=== PATIENT | male | born 1975 | race Caucasian/White ===

== ENCOUNTER 2016-08-05 01:59 | Emergency (ER) | payer OTHER ==
[2016-08-05 02:05] VITALS: TEMP 97.6; BMI 33.4
[2016-08-05] MEDS ORDERED: NS 1,000 ML IV ONE (02:17)
[2016-08-05] MEDS ORDERED: PROMETHAZINE 25 MG/ML VIAL IV ONE (02:18)
[2016-08-05] MEDS ORDERED: DIAZEPAM 10 MG/2 ML TUBEX IV ONE (02:18)
--- NOTE | 2016-08-05 02:20 | EDPRACDOC ---
"- General Information Chief Complaint: Generalized Weakness Stated Complaint: NAUSEA/DIZZINESS Time Seen by Provider: 08/05/16 02:09 Mode Of Arrival: Car Home Medications: Home Medications Diazepam [Valium] 5 mg PO TID #30 tablet 08/05/16 Promethazine [Phenergan] 25 mg PO Q8H PRN #30 tab 08/05/16 Allergies/Adverse Reactions: Allergies Allergy/AdvReac Type Severity Reaction Status Date / Time latex Allergy Itching Verified 08/05/16 02:05 - History of Present Illness Onset: THIS AM Exact Onset of Symptoms: Unknown Date Symptoms Started: 08/05/16 HPI: PATIENT NOTED SOME DIZZINESS AND ROOM SPINNING WITH NAUSEA. WORSE WITH HEAD MOVEMENT. 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 Symptoms Started: Reports: Gradually Symptoms Description: Constant Symptoms: Reports: Imbalance, Tinnitus, Vertigo Symptom Severity: Reports: Unable to performs ADL's Associated signs and symptoms:: Reports: Nausea, Vomiting ED Past Medical History - History Reviewed Yes Nurses notes reviewed and agree except as marked Travel Outside of [place] in the Last 3 Months?: No - Social Medical History ETOH: None Substance Abuse: None Lives With: Family Lives In: Home EDM Review of Systems - Review of Systems ROS Negative Except as Marked: Yes All systems reviewed and were negative except as marked Constitutional: Fatigue. negative: Chills, Fever, Loss of Appetite, Weakness Eyes: No Symptoms Reported. negative: Redness, Blurred Vision, Double Vision, Discharge, Pain, Light Sensitive, Photophobia Ears: No Symptoms Reported. negative: Pain, Hearing Loss, Drainage, Ear Pulling Throat: No Symptoms Reported. negative: Pain, Swelling Nose: No Symptoms Reported. negative: Congestion, Bleeding, Discharge, Injection, Swelling, Deformity, Ecchymosis, Tender, Abrasion, Laceration Mouth: No Symptoms Reported. negative: Pain, Drooling Respiratory: No Symptoms Reported. negative: Cough, Brassy Cough, Barky Cough, Shortness of Breath, Wheezing, Hemoptysis Cardiovascular: No Symptoms Reported. negative: Chest Pain, Palpitations, Syncope, Edema, Orthopnea, PND, Skin Mottling, Cyanosis Gastrointestinal: Nausea, Vomiting. negative: Constipation, Diarrhea, Formula Intolerance, Melena, Pain Genitourinary: No Symptoms Reported. negative: Dysuria, Hematuria, Frequency, Discharge, Bleeding, Testicular Pain, Neurological: Dizziness. negative: Gait Difficulty, Headache, Numbness, Seizure , Speech Difficulty, Weakness Musculoskeletal: No Symptoms Reported. negative: Neck, Chestwall, Ribs, Back, Shoulder, Arm, Elbow, Forearm, Wrist, Hand, Pelvis, Hip, Femur, Knee, Leg, Ankle , Foot Integumentary: No Symptoms Reported. negative: Itching, Rash, Bruising, Wound Allergic/Immunologic: No Symptoms Reported. negative: Hives, Itching Hematologic: No Symptoms Reported. negative: Lymphadenopathy, Easy Bruising, Easy Bleeding Endocrine: No Symptoms Reported. negative: Weight Gain, Weight Loss Psychiatric: No Symptoms Reported. negative: Anxiety, Depression, Hallucinations, Insomnia, Suicidal - Physical Exam Constitutional: Alert (Awake), No apparent distress Oriented to: Time, Person, Place Last recorded Vital Signs: Last Vital Signs Temp 97.6 F 08/05/16 02:01 Pulse 82 08/05/16 02:01 Resp 20 08/05/16 02:01 BP 162/92 08/05/16 02:01 Pulse Ox 98 08/05/16 02:01 Oxygen Pulse Oxygen Saturation 98 O2 Device Room Air Oxygen Flow Rate Fraction of Inspired Oxygen ( FIO2) - HEENT Head: Normal ( normocephalic) Eye Exam: Normal (PERRL, EOMI, Sclera white) Oropharynx: Normal (Pharynx:Moist without exudate,Gums-no swelling) Tympanic Membrane: Normal ENT EAC: Normal TMJ: Normal Nose: No Symptoms Reported (septum midline) Neck: Normal (FROM, trachea at midline) - Respiratory/Cardiovascular Respiratory: Normal - CTA (BBS clear to auscultation without adventitious sounds ) Cardiovascular: Normal (RRR without murmur, gallop or rub) - GI Auscultation: Normal (NABS) Palpation: Normal (Soft,No rebound or guarding, non distended) Tenderness: Non tender Maurer's Sign: Negative - Musculoskeletal Back: Normal (Non-Tender) Extremities: Normal (Normal tone, Pulses 2+ No cyanosis or edema, FROM) - Integumentary Skin: Normal, Warm, Dry Lymphatics: Normal (no adenopathy) - Neurologic Memory Impaired: Normal Motor Function: Normal (Normal tone, Pulses 2+ No cyanosis or edema, FROM) Cranial Nerve: Normal (CN II-X11 intact sensation, strength 5/5) Cerebellar: Normal Mood Description: Normal Perception: Normal - Results 08/05/16 02:15 08/05/16 02:15 - EKG EKG #1 EKG Time: 02:56 -: Yes EKG interpreted by me Rate: bpm: 84 [place]: Normal Rhythm: NSR Block: None Hypertrophy: None ST: Normal Decision Time to Discharge: 03:05 - Departure Yes I personally saw and evaluated the patient. Disposition: Home Condition: Good Final Diagnosis: Nausea and vomiting, Vertigo Instructions: Vertigo (ED) Education/Counseling Given To: Patient Education/Counseling Given Regarding: Diagnosis, Treatment, Prognosis, Follow Up Referrals: Guzman Heaton MD [Primary Care Provider] - One Week Prescriptions: New Diazepam [Valium] 5 mg PO TID #30 tablet Promethazine [Phenergan] 25 mg PO Q8H PRN #30 tab PRN Reason: Nausea/Vomiting Additional Instructions: follow up with PT for vertigo. Briana Frey, PT | [employer], [facility] | [phone] F | [phone] [place] [id number] [email or web address]"
[2016-08-05 02:48] LABS: AUTOMATED BASOPHIL 0.3 % (0-2); AUTOMATED EOSINOPHIL 3.2 % (0-5); AUTOMATED LYMPH 36.4 % (17-44); AUTOMATED MONOCYTE 9.2 % (3-10); AUTOMATED NEUTROPHIL 50.9 % (45-76); MPV 8.3 fL (7.4-10.4)
[2016-08-05 02:54] LABS: PARTIAL THROMB. TIME 24.5 SEC (22-35)
--- NOTE | 2016-08-05 02:54 | DIRPT ---
CLINICAL DATA: Dizziness this morning, nausea. History of traumatic brain injury. EXAM: CT HEAD WITHOUT CONTRAST TECHNIQUE: Contiguous axial images were obtained from the base of the skull through the vertex without intravenous contrast. COMPARISON: None. FINDINGS: No intracranial hemorrhage, mass effect, or midline shift. No hydrocephalus. The basilar cisterns are patent. No evidence of territorial infarct. No intracranial fluid collection. Calvarium is intact. Included paranasal sinuses and mastoid air cells are well aerated. IMPRESSION: No acute intracranial abnormality. Electronically Signed By: Shelby Staples M.D. On: 08/05/2016 02:51
--- NOTE | 2016-08-05 02:55 | DIRPT ---
CLINICAL DATA: Shortness of breath. Nausea, dizziness and lightheadedness. EXAM: PORTABLE CHEST 1 VIEW COMPARISON: None. FINDINGS: The cardiomediastinal contours are normal. Mild elevation of right hemidiaphragm. Pulmonary vasculature is normal. No consolidation, pleural effusion, or pneumothorax. No acute osseous abnormalities are seen. IMPRESSION: No acute pulmonary process. Electronically Signed By: Shelby Staples M.D. On: 08/05/2016 02:52
[2016-08-05 02:56] LABS: BLOOD UREA NITROGEN 22 MG/DL (9-20); CALCIUM 9.6 MG/DL (8.4-10.2); CALCULATED OSMOLALITY 274 MOs/Kg (270-290); CHLORIDE 105 mEq/L (98-107); GLUCOSE 93 mg/dL (70-99); SODIUM LEVEL 141 mEq/L (137-146); TOTAL PROTEIN 7.7 G/DL (6.3-8.2)
[2016-08-05 04:51] VITALS: BP 122/57; PULSE 81
== END 2016-08-05 04:45 | disposition home or self-care (01) ==
LOC: ED 01:59
DX: R11.2 Nausea with vomiting, unspecified (principal); R42 Dizziness and giddiness
CPT/HCPCS: 36415; 70450; 71010; 80053; 85025; 85610; 85730; 93005; 96361; 96374; 96375; 99283; J2550; J3360